=== PATIENT | female | born 1980 | race Caucasian/White ===

== ENCOUNTER 2017-11-26 21:58 | Emergency (ER) | payer SELFPAY | END 2017-11-26 23:05 | disposition home or self-care (01) | LOC: NAV ERS 21:58 | DX: I49.3 Ventricular premature depolarization (principal); F41.9 Anxiety disorder, unspecified; F32.9 Major depressive disorder, single episode, unspecified; F17.210 Nicotine dependence, cigarettes, uncomplicated; Z79.899 Other long term (current) drug therapy | CPT/HCPCS: 93005; 94760 ==

== ENCOUNTER 2018-12-02 21:13 | Emergency (ER) | payer SELFPAY ==
[~2018-12-02 21:13] MED LIST: Iopamidol 370 76% 100 ML VIAL ONE
[2018-12-02] MEDS ORDERED: Sodium Chloride 0.9% 1,000 ML ONE (21:35)
[2018-12-02] MEDS ORDERED: Ondansetron PF 4 MG/2 ML Vial ONE (21:35)
[2018-12-02 22:00] LABS: Band 4 % (5-11); Hemoglobin 13.8 g/dL (12.0-16.0); Lymphocytes 22 % (21-51); MDiff Complete? YES; Mean Corpuscular HGB CONC 33.9 g/dL (32.0-36.0); Mean Corpuscular Hemoglobin 30.4 pg (27.0-31.0); Mean Corpuscular Volume 89.6 fL (78.0-98.0); Mean Platelet Volume 10.1 fL (7.4-10.4); Monocytes 6 % (0-10); Neutrophil 68 % (42-75); Platelet Count 144 thou/uL (130-400); Platelet Morphology Comment Appears Adequate; RBC Distribution Width 12.2 % (11.5-14.5); RBC Morphology Normal; Red Blood Cell (RBC) Count 4.55 mill/uL (4.20-5.40); White Blood Cell (WBC) Count 9.5 thou/uL (4.8-10.8)
[2018-12-02 22:08] LABS: ALT (SGPT) 12 U/L (8-55); AST (SGOT) 16 U/L (5-34); Albumin 3.8 g/dL (3.5-5.0); Alkaline Phosphatase 94 U/L (40-150); Anion Gap 15 mmol/L (10-20); BUN (Urea Nitrogen) 6 mg/dL (7.0-18.7); Bilirubin, Total 0.4 mg/dL (0.2-1.2); Calc. Creatinine Clearance 0 mL/min (70-130); Calcium 8.7 mg/dL (7.8-10.44); Carbon Dioxide 22 mmol/L (22-29); Chloride 105 mmol/L (98-107); Estimated GFR-MDRD Greater than 90; Globulin 2.9 g/dL (2.4-3.5); Glucose 101 mg/dL (70-105); Lipase 25 U/L (8-78); Potassium 3.7 mmol/L (3.5-5.1); Protein, Total 6.7 g/dL (6.0-8.3); Sodium 138 mmol/L (136-145)
[2018-12-02 23:29] LABS: Bilirubin Negative (Negative); Blood, Urine Trace (Negative); Clarity Clear (Clear); Glucose, Urine (Dipstick) Negative (Negative); Leukocyte Negative (Negative); Nitrite Negative (Negative); Protein, Urine (Dipstick) Negative (Neg-Trace); Urobilinogen 0.2 mg/dL (0.2-1.0); pH, Urine 6.5 (5.0-9.0)
[2018-12-02 23:32] LABS: Bacteria/HPF None Seen HPF (None Seen); Specific Gravity, Urine 1.045 (1.002-1.036); Squamous Epithelial 0-3 HPF (0-3); WBC/HPF None Seen HPF (0-3)
[2018-12-02] MEDS ORDERED: predniSONE 20 MG TAB ONE (23:46)
--- NOTE | 2018-12-03 00:04 | CT ---
CT abdomen with contrast CT pelvis with contrast: DATE: 12/02/2018 HISTORY: 38-year-old female with bloody diarrhea, nausea, and vomiting COMPARISON: None TECHNIQUE: IV injection of iodinated contrast media:Administered Oral contrast media:Not administered FINDINGS: Diffuse mural thickening and mural edema of entire descending colon and transverse colon. Mild chelsi lonic fat stranding around the ascending colon. No evidence of abscess or pneumoperitoneum, or ascites, within the abdominal cavity or pelvic cavity. Bilateral kidneys, abdominal aorta, pancreas, spleen, liver, appendix, and adrenals, are normal. No small bowel dilation. Cholecystectomy clips in the gallbladder fossa. IMPRESSION: 1. Colitis involving the right hemicolon. This could be infectious or inflammatory bowel disease. 2. Status post cholecystectomy.
== END 2018-12-03 01:26 | disposition home or self-care (01) ==
LOC: NAV ERS 21:13
DX: K52.9 Noninfective gastroenteritis and colitis, unspecified (principal); F41.9 Anxiety disorder, unspecified; F32.9 Major depressive disorder, single episode, unspecified; Z87.891 Personal history of nicotine dependence; Z79.899 Other long term (current) drug therapy
CPT/HCPCS: 36415; 74177; 80053; 81003; 81015; 82274; 83690; 85025; 93005; 94760; 96361; 96374; J2405; J7050; J7512; Q9967

== ENCOUNTER 2021-02-04 15:55 | Emergency (ER) | payer SELFPAY ==
[2021-02-04] MEDS ORDERED: Ondansetron PF 4 MG/2 ML Vial ONE (16:14)
[2021-02-04] MEDS ORDERED: Ketorolac Tromethamine 30 MG/ML VIAL ONE (16:14)
[2021-02-04 16:17] LABS: #Basophils 0.1 thou/uL (0.0-0.2); #Eosinphils 0.1 thou/uL (0.0-0.7); #Lymphocytes 2.1 thou/uL (1.20-3.40); #Monocytes 0.8 thou/uL (0.11-0.59); #Neutrophils 8.5 thou/uL (1.40-6.50); %Basophils 0.8 % (0.0-1.0); %Eosinophils 1.2 % (0.0-10.0); %Monocytes 6.5 % (0.0-10.0); %Neutrophils 73.5 % (42.0-75.0); Hemoglobin 14.7 g/dL (12.0-16.0); Mean Corpuscular HGB CONC 32.1 g/dL (32.0-36.0); Mean Corpuscular Hemoglobin 30.7 pg (27.0-31.0); Mean Corpuscular Volume 95.5 fL (78.0-98.0); Mean Platelet Volume 9.6 fL (7.4-10.4); Platelet Count 195 thou/uL (130-400); RBC Distribution Width 13.1 % (11.5-14.5); Red Blood Cell (RBC) Count 4.81 mill/uL (4.20-5.40); White Blood Cell (WBC) Count 11.6 thou/uL (4.8-10.8)
[2021-02-04 16:25] LABS: Bilirubin Small (Negative); Blood, Urine Large (Negative); Glucose, Urine (Dipstick) Negative (Negative); Ketone, Urine Trace mg/dL (Negative); Leukocyte Negative (Negative); Nitrite Negative (Negative); Protein, Urine (Dipstick) 100 mg/dL (Neg-Trace)
[2021-02-04 16:28] LABS: Specific Gravity, Urine 1.028 (1.002-1.036)
[2021-02-04 16:29] LABS: Bacteria/HPF Rare-Few HPF (None Seen); Clarity Hazy (Clear); RBC/HPF Greater than 50 HPF (0-3); Squamous Epithelial 0-3 HPF (0-3); WBC/HPF 0-3 HPF (0-3)
[2021-02-04 16:39] LABS: ALT (SGPT) 19 U/L (8-55); AST (SGOT) 14 U/L (5-34); Albumin 4.2 g/dL (3.5-5.0); Alkaline Phosphatase 81 U/L (40-110); Anion Gap 12 mmol/L (10-20); BUN (Urea Nitrogen) 9 mg/dL (7.0-18.7); Bilirubin, Total 0.2 mg/dL (0.2-1.2); Calc. Creatinine Clearance 0 mL/min (70-130); Calcium 8.9 mg/dL (7.8-10.44); Carbon Dioxide 26 mmol/L (22-29); Chloride 102 mmol/L (98-107); Globulin 3.4 g/dL (2.4-3.5); Glucose 116 mg/dL (70-105); Protein, Total 7.6 g/dL (6.0-8.3); Sodium 136 mmol/L (136-145)
[2021-02-04] MEDS ORDERED: Tamsulosin HCl 0.4 MG CAP ONE (17:16)
[2021-02-04] MEDS ORDERED: Sodium Chloride 0.9% 1,000 ML ONE (17:16)
== END 2021-02-04 18:14 | disposition home or self-care (01) ==
LOC: NAV ERS 15:55
DX: N13.2 Hydronephrosis with renal and ureteral calculous obstruction (principal); Z87.891 Personal history of nicotine dependence; Z79.899 Other long term (current) drug therapy
CPT/HCPCS: 74176; 80053; 81003; 81015; 85025; J1885; J2405; J7050